=== PATIENT | male | born 1990 | race Caucasian/White ===

== ENCOUNTER 2019-09-18 11:19 | Emergency (ER) | payer OTHER ==
--- NOTE | 2019-09-18 12:11 | UC ---
Syncope/New Syncope HPI - HPI Summary HPI Summary: 28 yo male presents s/p syncopal episode. 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 He was listing to a podcast about surgical procedures, felt nauseous and lightheaded and that "passed out" for <1min. Currently he states he feels a little dizzy. He has a hx of HTN for which he takes lisinopril. He denies recent illness, SOB, chest pain, palpitations, abdominal pain, n/v/d. He states he has never passed out before. - History Of Current Complaint Chief Complaint: UCGeneralIllness Stated Complaint: FAINTING & DIZZINESS Time Seen by Provider: 09/18/19 12:04 Hx Obtained From: Patient Onset/Duration: Sudden Onset Pain Intensity: 0 - Allergies/Home Medications Allergies/Adverse Reactions: Allergies Allergy/AdvReac Type Severity Reaction Status Date / Time No Known Allergies Allergy Verified 09/18/19 12:04 Home Medications: Home Medications Lisinopril TAB* [Prinivil TAB*] 10 mg PO DAILY 09/18/19 [History Confirmed 09/18] PMH/Surg Hx/FS Hx/Imm Hx Cardiovascular History: Hypertension - Surgical History Surgical History: Yes Surgery Procedure, Year, and Place: 2006 knee. 1997 arm repair - Family History Known Family History: Positive: None - Social History Lives: With Family Alcohol Use: Occasionally Substance Use Type: None Smoking Status (MU): Never Smoked Tobacco Review of Systems All Other Systems Reviewed And Are Negative: No Constitutional: Positive: Negative Skin: Positive: Negative Respiratory: Positive: Negative Cardiovascular: Positive: Negative Gastrointestinal: Positive: Negative Genitourinary: Positive: Negative Motor: Positive: Negative Neurovascular: Positive: Negative Musculoskeletal: Positive: Negative Neurological/Mental Status: Positive: Other - Syncope Psychological: Positive: Negative Physical Exam - Summary Physical Exam Summary: GENERAL: NAD. WDWN. No pain distress. SKIN: No rashes, sores, ulcers, masses, lesions. HEENT: Head: AT/NC. Eyes: PERRLA. EOM intact. Conjunctiva clear without inflammation or discharge. Ears: Hearing grossly normal. TMs intact, no bulging, erythema, or edema. Nose: Nasal mucosa pink and moist. NTTP maxillary and frontal sinus. Throat: Posterior oropharynx without exudates, erythema, or tonsillar enlargement. Uvula midline. NECK: Supple. Nontender. FROM CHEST: CTAB. No r/r/w. No accessory muscle use. Breathing comfortably and in no distress. CV: RRR. Pulses intact. Brisk cap refill. ABDOMEN: Soft. NTTP. Bowel sounds present MSK: FROM in B/L UEs and LEs with symmetric strength. NEURO: A&Ox3. CN: II: Peripheral victor intact. Vision normal. III, IV, : EOMI. No nystagmus. PERRLA. V: Sensations intact and symmetric. Opens mouth and clenches teeth. VII: No facial asymmetry. Forehead wrinkles. Grins, shuts eyes, frowns, puffs cheeks. VIII: Hearing intact to finger rub. IX, X: Swallows and coughs. Uvula midline. XI: Shrugs shoulders. Turns head against resistance. XII : No tongue deviation [id number] are intact. Gait with normal base. Romberg : maintains balance, no pronator drift. Normal speech. No facial drooping. PSYCH: Age appropriate behavior. Triage Information Reviewed: Yes Vital Signs: Initial Vital Signs Temp 98.3 F 09/18/19 11:59 Pulse 63 09/18/19 11:59 Resp 14 09/18/19 11:59 BP 120/71 09/18/19 11:59 Pulse Ox 99 09/18/19 11:59 Lying down: 54HR 129/77 Sittin HR 122/69 StandinHR. 119/75 Vital Signs Reviewed: Yes Diagnostics - EKG EKG Comparison: Other Summary of EKG Findings: 60bpm RBBB. No STEMI as read by Dr. Dove. Syncope Course/Dx - Course Course Of Treatment: EKG as above. POC glucose 120 Orthostatics as above. He is currently well appearing and exam is unremarkable. His syncopal episode is likely due to a vasovagal reaction as he was listing to a surgical podcast at the time of the event, but given his hx of HTN, RBB, no positional change, and no hx of syncope -- recommend going to the ED for further evaluation. Pt was agreeable to this and will have someone drive him there now - Differential Dx/Diagnosis Provider Diagnosis: Syncope Discharge ED - Sign-Out/Discharge Documenting (check all that apply): Patient Departure All imaging exams completed and their final reports reviewed: No Studies - Discharge Plan Condition: Stable Disposition: HOME-RECOMMEND TO ED Referrals: No Primary Care Phys,NOPCP [Primary Care Provider] - Additional Instructions: Please go to the ER for further evaluation of your syncopal episode. - Billing Disposition and Condition Condition: STABLE Disposition: Home-Recommend to ED
[2019-09-18 12:27] VITALS: BP 119/75
== END 2019-09-18 12:50 | disposition home health service (06) ==
LOC: UCEAST 11:19
DX: R55 Syncope and collapse (principal); I10 Essential (primary) hypertension; Z79.899 Other long term (current) drug therapy
CPT/HCPCS: 93005; 99202; G0463